=== PATIENT | male | born 1980 | race Caucasian/White ===

== ENCOUNTER 2017-02-06 10:41 | Emergency (ER) | payer OTHER ==
[2017-02-06 10:45] VITALS: TEMP 98; BMI 31.9
[2017-02-06] MEDS ORDERED: CYCLOBENZAPRINE HCL 10 MG TABLET (FP) PO ONE ×2 (11:18→11:26)
[2017-02-06] MEDS ORDERED: KETOROLAC TROMETHAMINE 60 MG/2 ML VIAL IM ONE (11:18)
[2017-02-06] MEDS ORDERED: CYCLOBENZAPRINE HCL 10 MG TABLET (FP) ONE (11:26)
[2017-02-06] MEDS ORDERED: KETOROLAC TROMETHAMINE 60 MG/2 ML VIAL ONE (11:26)
--- NOTE | 2017-02-06 12:05 | PDOC ---
History of Present Illness - General Chief Complaint: Pain Stated Complaint: PAIN Time Seen by Provider: 02/06/17 11:06 History Source: Patient - History of Present Illness Occurred: reports: yesterday Severity: reports: moderate Pain Location: reports: back Past History - Past Medical History Allergies/Adverse Reactions: Allergies Allergy/AdvReac Type Severity Reaction Status Date / Time No Known Allergies Allergy Verified 02/06/17 10:45 Home Medications: Ambulatory Orders Cyclobenzaprine HCl [Flexeril 10 mg] 10 mg PO TID PRN #9 tablet 02/06/17 Ibuprofen [Motrin -] 600 mg PO QID #28 tablet 02/06/17 Tramadol HCl 50 mg PO Q6H #15 tablet MDD 200 mg 02/06/17 Other medical history: DENIES - Psycho/Social/Smoking Cessation Hx Anxiety: No Suicidal Ideation: No Smoking History: Never smoked Hx Alcohol Use: Yes (SOCIAL) Drug/Substance Use Hx: No Substance Use Type: None Review of Systems - Review of Systems Constitutional: No: Chills, Fever ABD/GI: No: Nausea, Vomiting : No: Burning, Dysuria, Flank Pain, Hematuria Musculoskeletal: Yes: Back Pain. No: Muscle Weakness Neurological: No: Numbness, Tingling *Physical Exam - Vital Signs Last Vital Signs Temp Pulse Resp BP Pulse Ox 98.0 F 75 20 150/103 99 02/06/17 10:42 02/06/17 10:42 02/06/17 10:42 02/06/17 10:42 02/06/17 10:42 - Physical Exam Comments: 02/06/17 12:04 Pt well puma, sitting on chair and reading a book General Appearance: Yes: Appropriately Dressed. No: Apparent Distress HEENT: positive: Normal Voice Neck: positive: Supple Respiratory/Chest: negative: Respiratory Distress Gastrointestinal/Abdominal: positive: Soft. negative: Tender Musculoskeletal: negative: CVA Tenderness, Vertebral Tenderness Extremity: positive: Normal Inspection Integumentary: positive: Dry, Warm Neurologic: positive: Fully Oriented, Alert, Normal Mood/Affect, Motor Strength 5/5 ED Treatment Course - Medications Given in the ED: ED Medications Discontinued Medications Generic Name Dose Route Start Last Admin Trade Name Freq PRN Reason Stop Dose Admin Cyclobenzaprine HCl 5 mg 02/06/17 11:18 02/06/17 11:30 Flexeril - PO 02/06/17 11:19 Not Given ONCE ONE Cyclobenzaprine HCl 10 mg 02/06/17 11:26 02/06/17 11:30 Flexeril - PO 02/06/17 11:27 10 mg ONCE ONE Administration Ketorolac Tromethamine 60 mg 02/06/17 11:18 02/06/17 11:30 Toradol Injection - IM 02/06/17 11:19 60 mg ONCE ONE Administration Medical Decision Making - Medical Decision Making 02/06/17 12:02 36-year-old male, denies any past medical history, here with lower back pain. Patient states that pain started yesterday in the setting of heavy lifting and has since radiated to bilateral groin. Took Aleve with some relief. No leg pain or lower extremity weakness, saddle anesthesia, bowel or bladder incontinence, dysuria, hematuria, nausea, vomiting, fever or chills. No history of kidney stones. See exam LBP in setting of heavy lifting M/l MSK No red flag at this time. i.e cauda equina, infxn -pain control -reasess 02/06/17 12:04 02/06/17 12:26 Pt reports mild improvement with meds. Will dc with pain control. Return precautions given *DC/Admit/Observation/Transfer Diagnosis at time of Disposition: Back pain Qualifiers: Back pain location: low back pain Chronicity: acute Back pain laterality: bilateral Sciatica presence: without sciatica Qualified Code(s): M54.5 - Low back pain - Discharge Dispostion Disposition: HOME Condition at time of disposition: Improved - Prescriptions Prescriptions: Cyclobenzaprine HCl [Flexeril 10 mg] 10 mg PO TID PRN #9 tablet PRN Reason: Back Pain Ibuprofen [Motrin -] 600 mg PO QID #28 tablet Tramadol HCl 50 mg PO Q6H #15 tablet MDD 200 mg - Patient Instructions Printed Discharge Instructions: Low Back Pain Additional Instructions: The most common cause of back pain is musculoskeletal disorders. This condition can take couple days to a week or 2 to fully resolve. Take Motrin and Flexeril at onset of pain. If pain does not improve, you can take one tramadol. Both tramadol and Flexeril can make you drowsy, so do not take meds when driving or going out. If symptoms worsen and you develop new symptoms such as nausea, vomiting, difficulty urinating or fever, return to ER immediately. If pain persists, please follow-up with your PMD - Post Discharge Activity Work/School Note: Back to Work
[2017-02-06 12:37] VITALS: BP 144/90; PULSE 88
== END 2017-02-06 12:37 | disposition home or self-care (01) ==
LOC: JER 10:41
PROC: 3E0233Z Introduction of Anti-inflammatory into Muscle, Percutaneous Approach (ICD-10-PCS; principal; 2017-02-06)
DX: M54.5 Low back pain (principal); X50.0XXA Overexertion from strenuous movement or load, initial encounter; Y93.E9 Activity, other interior property and clothing maintenance; Y92.038 Other place in apartment as the place of occurrence of the external cause
CPT/HCPCS: 96372; 99283-25

== ENCOUNTER 2017-05-11 00:15 | Emergency (ER) | payer OTHER ==
[2017-05-11 00:38] VITALS: TEMP 98.9; BMI 31.9
--- NOTE | 2017-05-11 00:41 | PDOC ---
History of Present Illness - General Chief Complaint: Chest Pain Stated Complaint: PAIN,LT SIDE/NUMBNESS LT HAND Time Seen by Provider: 05/11/17 00:41 Past History - Past Medical History Allergies/Adverse Reactions: Allergies Allergy/AdvReac Type Severity Reaction Status Date / Time No Known Allergies Allergy Verified 05/11/17 00:35 Home Medications: Ambulatory Orders Cyclobenzaprine HCl [Flexeril 10 mg] 10 mg PO TID PRN #9 tablet 02/06/17 Ibuprofen [Motrin -] 600 mg PO QID #28 tablet 02/06/17 Tramadol HCl 50 mg PO Q6H #15 tablet MDD 200 mg 02/06/17 - Suicide/Smoking/Psychosocial Hx Smoking History: Never smoked Have you smoked in the past 12 months: No Information on smoking cessation initiated: No Hx Alcohol Use: No Drug/Substance Use Hx: No Substance Use Type: None *Physical Exam - Vital Signs Last Vital Signs Temp Pulse Resp BP Pulse Ox 98.9 F 77 20 153/137 95 05/11/17 00:35 05/11/17 00:35 05/11/17 00:35 05/11/17 00:35 05/11/17 00:35 Heart Score/ECG Review - History History: Slightly suspicious - Electrocardiogram EKG: Normal - Age Age: </= 45 - Risk Factors Based on the list above the patient has:: No risk factors known - Troponin Troponin: </= normal limit - Score Heart Score - Total: 0 ED Treatment Course - LABORATORY CBC & Chemistry Diagram: 05/11/17 00:52 05/11/17 00:52 *DC/Admit/Observation/Transfer Diagnosis at time of Disposition: Chest pain Qualifiers: Chest pain type: unspecified Qualified Code(s): R07.9 - Chest pain, unspecified - Discharge Dispostion Disposition: HOME Condition at time of disposition: Good Admit: No - Referrals Referrals: Ramon Leach MD [Primary Care Provider] - Marlen Vaca MD [Staff Physician] - - Patient Instructions Printed Discharge Instructions: DI for Chest Pain Additional Instructions: Your work up today was negative. Your EKG was normal. Please follow up with Dr. Dupree this week. You were also given a referral for a door clamper. Please return to the ED if you have worsening pain, fevers, chills, shortness of breath, or have any changes in your symptoms - Post Discharge Activity Forms/Work/School Notes: Back to Work
[2017-05-11 01:18] LABS: BASOPHIL 0.6 % (0-2.0); MCH 29.2 pg (25.7-33.7); MCHC 34.1 g/dl (32.0-35.9); MEAN CELL VOLUME 85.8 fl (80-96); MEAN PLT VOLUME 9.1 fl (7.5-11.1); NEUTROPHILS 52.5 % (42.8-82.8); PLATELET COUNT 250 K/MM3 (134-434); RDW 13.5 % (11.9-15.9); WHITE BLOOD COUNT 6.7 K/mm3 (4.0-10.0)
[2017-05-11 01:30] LABS: INR 1.06 (0.82-1.09)
[2017-05-11 01:39] LABS: ALBUMIN 4.3 g/dl (3.4-5.0); ANION GAP 10 (8-16); BILIRUBIN,TOTAL 0.4 mg/dL (0.2-1.0); CALCIUM 9.1 mg/dL (8.5-10.1); CO2 26 mmol/L (21-32); GLUCOSE,RANDOM 152 mg/dL (74-106); SGOT/AST 66 U/L (15-37); SGPT/ALT 170 U/L (12-78); TOT PROT 7.6 g/dl (6.4-8.2)
[2017-05-11 01:40] LABS: ALK PHOS 98 U/L (45-117)
[2017-05-11 01:42] LABS: CPK 188 IU/L (39-308); TROPONIN I < 0.02 ng/ml (0.00-0.05)
[2017-05-11] MEDS ORDERED: ONDANSETRON 4 MG/2 ML VIAL IVPUSH ONE (03:36)
[2017-05-11] MEDS ORDERED: FAMOTIDINE IV 20 MG/12 ML VIAL IVPB ONE (03:37)
[2017-05-11] MEDS ORDERED: ONDANSETRON *ODT* 4 MG TABLET SL ONE (03:44)
[2017-05-11] MEDS ORDERED: RANITIDINE HCL 150 MG TABLET (FP) PO ONE (03:44)
[2017-05-11] MEDS ORDERED: ONDANSETRON *ODT* 4 MG TABLET ONE (03:52)
[2017-05-11] MEDS ORDERED: RANITIDINE HCL 150 MG TABLET (FP) ONE (03:52)
[2017-05-11 05:00] LABS: CPK 185 IU/L (39-308)
[2017-05-11 05:01] LABS: TROPONIN I < 0.02 ng/ml (0.00-0.05)
[2017-05-11 05:27] VITALS: BP 148/86; PULSE 79
--- NOTE | 2017-05-14 01:45 | EKG ---
Test Reason : Blood Pressure : / mmHG Vent. Rate : 072 BPM Atrial Rate : 072 BPM P-R Int : 168 ms QRS Dur : 094 ms QT Int : 372 ms P-R-T Axes : 051 030 012 degrees QTc Int : 407 ms NORMAL SINUS RHYTHM NORMAL ECG NO PREVIOUS ECGS AVAILABLE Confirmed by SYMONE BOJORQUEZ MD ([id number]) on 05/14/2017 1:45:31 AM Referred By: Confirmed By:SYMONE BOJORQUEZ MD
== END 2017-05-11 05:51 | disposition home or self-care (01) ==
LOC: JER 00:15
DX: R07.9 Chest pain, unspecified (principal)
CPT/HCPCS: 36415; 71020-TC; 80053; 82550; 82553; 83735; 84484; 85025; 85610; 93005; 93010; 99283-25